=== PATIENT | female | born 1935 | race Caucasian/White ===

== ENCOUNTER 2017-09-20 18:52 | Inpatient (IN) | payer OTHER, MEDICAID ==
[~2017-09-20] VITALS: Ht 157.5 cm; Wt 62.6 kg
[~2017-09-20 18:52] MED LIST: AMO500 PO; ANTIVERT/2525 M1 PO; ARI10 PO; ARICEPT10 MG PO; ATENOLOL25 MG PO; ATENOLOL25 PO; COU1 PO; COU2.5 PO; COUMADIN2.5 MG PO; COUMADIN5 MG; COZ25 PO; COZ50 PO; DIT5 PO; DYA PO; ESCITALOPRAM10 M1; FAMOTIDINE20 MG PO; IMD60 PO; IMDUR ER30 M1 PO; ISOSORBIDE MONO30 M1 PO; LEVOXYL0.088 MG PO; LEXAPRO5 MG PO; LOSARTAN POTASS25 M1 PO; LYRICA50 M1 PO; LYRICA50 MG PO; METHOCARBAMOL500 MG PO; MIANS; NIT0.4 SL; OMEPRAZOLE DR20 M1 PO; OSCD PO; OXYBUTYNIN ER5 MG PO; OXYBUTYNIN PO; PANTOPRAZOLE40 MG PO; PEP20 PO; PEPCID AC20 M1 PO; PRE20 PO; PRO40 PO; SYN1 PO; T3 PO; TEN25 PO; THYROXIN PO; TRIAMTERENE/H37.5 MG PO; WARFARIN SODIUM3 M1 PO; ZYP5 PO; [UNRECOGNIZED DRUG - CODE] PO
[2017-09-20 20:06] LABS: BASOPHIL % 0.1 % (0-2); PLATELET COUNT 179 x10^3mcL (130-400); RED CELL DISTRIBUTION WIDTH 13.5 % (11.5-14.5)
[2017-09-20 20:20] LABS: ALBUMIN 3.7 g/dL (3.4-5.0); ALKALINE PHOSPHATASE 114 U/L (46-116); ALT/SGPT 16 U/L (14-59); AST/SGOT 20 U/L (15-37); BILIRUBIN TOTAL 0.6 mg/dL (0.20-1.00); CALCIUM 8.7 mg/dL (8.5-10.1); CARBON DIOXIDE 27.7 mmol/L (21-32); CHLORIDE SERUM 103 mmol/L (98-107); CREATININE SERUM 0.8 mg/dL (0.6-1.0); GLUCOSE SERUM 116 mg/dL (74-106); SODIUM SERUM 139 mmol/L (136-145)
[2017-09-20] MEDS ORDERED: LORAZEPAM0.5 MG (20:43)
[2017-09-20] MEDS ORDERED: ZOLOFT25 MG PO (20:44)
[2017-09-20] MEDS ORDERED: XARELTO10 M1 PO (20:44)
[2017-09-20 21:49] LABS: T3 TOTAL 0.81 ng/mL
[2017-09-20 21:50] LABS: FREE T4 1.39 ng/dL (0.76-1.46); FREE THYROXINE INDEX 3.6 ug/dL (1.4-4.5); T4(THYROXINE) 9.8 ug/dL (4.7-13.3)
[2017-09-20 21:59] LABS: MAGNESIUM 1.6 mg/dL (1.8-2.4); PHOSPHOROUS 2.4 mg/dL (2.5-4.9)
[2017-09-20 22:00] LABS: microscopic required? YES; urine erythrocyte 1+ (NEGATIVE)
[2017-09-20 22:00] LABS: CHOLESTEROL/HDL RATIO 2.7
[2017-09-20 22:06] VITALS: BP 111/51
[2017-09-20 22:10] VITALS: Ht 157.5 cm; Wt 62.6 kg
[2017-09-20 23:03] VITALS: BP 111/51
[2017-09-21 06:30] LABS: PLATELET COUNT 151 x10^3mcL (130-400); RED CELL DISTRIBUTION WIDTH 13.5 % (11.5-14.5)
[2017-09-21 06:47] LABS: CALCIUM 8.6 mg/dL (8.5-10.1); CHLORIDE SERUM 105 mmol/L (98-107); CREATININE SERUM 0.7 mg/dL (0.6-1.0); GLUCOSE SERUM 177 mg/dL (74-106); MAGNESIUM 1.6 mg/dL (1.8-2.4); POTASSIUM SERUM 3.9 mmol/L (3.5-5.1); SODIUM SERUM 139 mmol/L (136-145)
[2017-09-21 06:55] LABS: BASOPHIL % 0 % (0-2)
[2017-09-21 11:35] VITALS: BP 147/96
[2017-09-21 16:00] VITALS: BP 155/78
[2017-09-21 18:39] VITALS: BP 150/64
[2017-09-21 20:30] VITALS: BP 159/64
[2017-09-22 04:45] VITALS: BP 162/80
[2017-09-22 07:13] LABS: BASOPHIL % 0.1 % (0-2); PLATELET COUNT 154 x10^3mcL (130-400); RED CELL DISTRIBUTION WIDTH 13.7 % (11.5-14.5)
[2017-09-22 08:10] LABS: CALCIUM 8.3 mg/dL (8.5-10.1); CARBON DIOXIDE 24.7 mmol/L (21-32); CHLORIDE SERUM 105 mmol/L (98-107); CREATININE SERUM 0.7 mg/dL (0.6-1.0); GLUCOSE SERUM 93 mg/dL (74-106); POTASSIUM SERUM 3.4 mmol/L (3.5-5.1); SODIUM SERUM 141 mmol/L (136-145)
[2017-09-22 08:20] VITALS: BP 165/68
[2017-09-22 14:16] VITALS: BP 154/79
[2017-09-22 17:30] VITALS: BP 151/78
[2017-09-22 20:58] VITALS: BP 145/65
[2017-09-23 05:11] VITALS: BP 117/63
[2017-09-23 07:03] LABS: BASOPHIL % 0.1 % (0-2); PLATELET COUNT 146 x10^3mcL (130-400); RED CELL DISTRIBUTION WIDTH 13.7 % (11.5-14.5)
[2017-09-23 07:11] LABS: CALCIUM 8.1 mg/dL (8.5-10.1); CARBON DIOXIDE 25.1 mmol/L (21-32); CHLORIDE SERUM 107 mmol/L (98-107); CREATININE SERUM 0.6 mg/dL (0.6-1.0); GLUCOSE SERUM 104 mg/dL (74-106); MAGNESIUM 1.9 mg/dL (1.8-2.4); POTASSIUM SERUM 3.7 mmol/L (3.5-5.1); SODIUM SERUM 140 mmol/L (136-145)
[2017-09-23 09:00] VITALS: BP 152/76
[2017-09-23 14:30] VITALS: BP 138/69
[2017-09-23 19:18] VITALS: BP 129/62
[2017-09-23 21:32] VITALS: BP 146/69
[2017-09-24 05:05] VITALS: BP 155/68
[2017-09-24 06:44] LABS: BASOPHIL % 0.5 % (0-2); PLATELET COUNT 163 x10^3mcL (130-400); RED CELL DISTRIBUTION WIDTH 13.5 % (11.5-14.5)
[2017-09-24 06:54] LABS: CALCIUM 8.1 mg/dL (8.5-10.1); CHLORIDE SERUM 105 mmol/L (98-107); CREATININE SERUM 0.6 mg/dL (0.6-1.0); GLUCOSE SERUM 95 mg/dL (74-106); POTASSIUM SERUM 3.9 mmol/L (3.5-5.1); SODIUM SERUM 134 mmol/L (136-145)
[2017-09-24 08:00] VITALS: BP 131/68
[2017-09-24 10:09] VITALS: BP 138/55
[2017-09-24] MEDS ORDERED: LEVOFLOXACIN500 M1 PO (15:44)
[2017-09-24] MEDS ORDERED: CLINDAMYCIN HC300 MG PO (15:46)
[2017-09-24 15:54] VITALS: BP 138/55
[2017-09-24] MEDS ORDERED: LAC PO (15:55)
[2017-09-24] MEDS ORDERED: TYLENOL WITH CO1 TA2 PO (16:05)
== END 2017-09-24 17:43 | disposition home or self-care (01) | DRG 177 ==
LOC: ED 18:52 → DU 20:18
PROVIDERS: Emergency Medicine; Family Medicine
DX: J69.0 Pneumonitis due to inhalation of food and vomit (principal); J96.00 Acute respiratory failure, unspecified whether with hypoxia or hypercapnia; I50.43 Acute on chronic combined systolic (congestive) and diastolic (congestive) heart failure; N39.0 Urinary tract infection, site not specified; J09.X1 Influenza due to identified novel influenza A virus with pneumonia; K21.9 Gastro-esophageal reflux disease without esophagitis; R13.10 Dysphagia, unspecified; I11.0 Hypertensive heart disease with heart failure; I48.91 Unspecified atrial fibrillation; I10 Essential (primary) hypertension; R31.9 Hematuria, unspecified; G25.81 Restless legs syndrome; E78.5 Hyperlipidemia, unspecified; E05.90 Thyrotoxicosis, unspecified without thyrotoxic crisis or storm; Z68.22 Body mass index [BMI] 22.0-22.9, adult; Z90.5 Acquired absence of kidney; Z86.73 Personal history of transient ischemic attack (TIA), and cerebral infarction without residual deficits; Z86.718 Personal history of other venous thrombosis and embolism; Z86.711 Personal history of pulmonary embolism; Z79.01 Long term (current) use of anticoagulants; Z99.81 Dependence on supplemental oxygen
CPT/HCPCS: 36600; 83880; 84439; 87804; 92610-GN; 94150; 97110-GP; 97116-GP; 97530-GP; J1885; J1956; J2405; J2930; J3475; J3490; J7030; J7613; J7620; J7644; Q0092

== ENCOUNTER 2019-02-25 14:22 | Inpatient (IN) | payer OTHER ==
[~2019-02-25] VITALS: Ht 167.6 cm; Wt 66.0 kg
[~2019-02-25 14:22] MED LIST changes: +CLINDAMYCIN HC300 MG PO; +LAC PO; +LEVOFLOXACIN500 M1 PO; +LORAZEPAM0.5 MG; +TYLENOL WITH CO1 TA2 PO; +XARELTO10 M1 PO; +ZOLOFT25 MG PO
--- NOTE | 2019-02-25 14:41 | NUR ---
PT BIB [facility] WITH INITIAL COMPLAINT OF GENERALIZED WEAKNESS. UPON ARRIVAL PT AWAKE ALERT HOWEVER CONFUSED TO TIME PLACE AND SITUATION. PT FOLLOWS COMMANDS. EQUAL BUTTONER AND PUSHES NO FACIAL ASSYMETRY OR DROOP NOTED. PT REPORTEDLY WAS AT HOME HOME HEALTH NURSE CALLED 911 DUE TO PT "NOT ACTING RIGHT". PT LIVES WITH WHO IS [place] SPEAKING BUT PER MEDICS DID NOT APPEAR TO BE ABLE TO TRAVEL ON HIS OWN. HOME HEALTH NURSE DID NOT KNOW PTS BASELINE IT WAS HER FIRST TIME VISITING PT. PT GOWNED PLACED ON FULL CM. EKG DONE BY CLARITA EMT. PT IN POSITION OF COMFORT NO DISTRESS. WILL MONITOR.
--- NOTE | 2019-02-25 15:44 | NUR ---
PT ASSISTED TO BEDSIDE COMMODE WITH NO PROBLEM. PT INST ON CLEAN CATH URINE. AT BEDSIDE ASSISTING. WILL MONITOR.
[2019-02-25 15:56] LABS: UA SPECIFIC GRAVITY 1.025 (1.005-1.035); microscopic required? YES; urine erythrocyte NEGATIVE (NEGATIVE)
--- NOTE | 2019-02-25 16:14 | NUR ---
MSE COMPLETED BY DR BARRAGAN
--- NOTE | 2019-02-25 16:14 | NUR ---
PTS AT BEDSIDE PT IN NO DISTRESS ASSISTED TO POSITION OF COMFORT. WARM BLANKET PROVIDED PER PTS REQUEST. PT AFEBRILE AT THIS TIME. CALL LIGHT IN REACH. SIDE RAILS UP X 2 FOR PTS SAFETY. WILL MONITOR.
--- NOTE | 2019-02-25 16:25 | NUR ---
PORTABLE CXR AT BEDSIDE AT THIS TIME
[2019-02-25 16:58] LABS: CALCIUM 8.3 mg/dL (8.5-10.1); CARBON DIOXIDE 32.2 mmol/L (21-32); CHLORIDE SERUM 108 mmol/L (98-107); GLUCOSE SERUM 117 mg/dL (74-106); POTASSIUM SERUM 4.4 mmol/L (3.5-5.1); SODIUM SERUM 145 mmol/L (136-145)
[2019-02-25 17:08] LABS: ALKALINE PHOSPHATASE 382 U/L (46-116); ALT/SGPT 144 U/L (14-59); AST/SGOT 88 U/L (15-37); BILIRUBIN TOTAL 1.4 mg/dL (0.20-1.00); C REACTIVE PROTEIN 6.7 mg/dL (<=0.9)
[2019-02-25 17:11] LABS: TOTAL PROTEIN, SERUM 5.9 g/dL (6.4-8.2)
[2019-02-25 17:13] LABS: FREE T4 1.11 ng/dL (0.76-1.46); FREE THYROXINE INDEX 2.7 ug/dL (1.4-4.5); T4(THYROXINE) 7.6 ug/dL (4.7-13.3)
[2019-02-25 17:16] LABS: BASOPHIL % 0.7 % (0-2); PLATELET COUNT 187 x10^3mcL (130-400); RED CELL DISTRIBUTION WIDTH 16.5 % (11.5-14.5)
--- NOTE | 2019-02-25 17:45 | NUR ---
RT AT BEDSIDE PER DR BARRAGAN PLACE PT ON BI-PAP
[2019-02-25 17:55] LABS: T3 TOTAL 0.78 ng/mL
[2019-02-25 17:57] LABS: CK-MB 1.2 ng/mL (0-3.6)
--- NOTE | 2019-02-25 17:58 | NUR ---
PER DR BARRAGAN IVF BOLUS STOPPED.
--- NOTE | 2019-02-25 18:00 | NUR ---
PT TO XRAY VIA NERY
--- NOTE | 2019-02-25 18:08 | NUR ---
PT BACK FROM [facility] VIA [facility] WITH NO INCIDENT
[2019-02-25 18:20] LABS: ERYTHROCYTE SED RATE 25 mm/hr (0-30)
[2019-02-25 18:31] VITALS: BP 128/80
--- NOTE | 2019-02-25 18:46 | NUR ---
PT LYING IN BED COMFORTABLY NO DISTRESS NO FURTHER ORDERS AT THIS TIME WILL MONITOR.
--- NOTE | 2019-02-25 19:12 | NUR ---
REPORT GIVEN BY FREDRICK AMAYA. PT FAMILY REQUESTING TO SPEAK TO DR BARRAGAN ABOUT PLAN OF CARE. DR BARRAGAN MADE AWARE.
--- NOTE | 2019-02-25 19:16 | NUR ---
PT MEDICATED PER MD ORDERS SEE EMAR.
--- NOTE | 2019-02-25 19:17 | NUR ---
REPORT GIVEN TO STEPHANIE AMAYA. RESUMING CARE OF PT AT THIS TIME
--- NOTE | 2019-02-25 19:22 | NUR ---
PT CALLED NURSING STATION C/O "GETTING TOO MUCH AIR". DR BARRAGAN AT BEDSIDE SPEAKING WITH SON ABOUT PLAN OF CARE.
--- NOTE | 2019-02-25 19:43 | NUR ---
PT REQUESTING WATER, OKAY TO PROVIDE PT WITH SMALL SIPS OF WATER AND ICE CHIPS PER DR BARRAGAN. EDUCATED FAMILY ON IMPORTANCE OF NOT GIVING PATIENTS MORE WATER OR LIQUIDS AT THIS TIME. PT ABLE TO ANSWER QUESTIONS APPROPRIATELY AT THIS TIME. BI-PAP IN PLACE. FAMILY AT BEDSIDE. WILL CONTINUE TOP MONITOR.
[2019-02-25 20:44] LABS: MAGNESIUM 2.4 mg/dL (1.8-2.4); PHOSPHOROUS 3.9 mg/dL (2.5-4.9)
[2019-02-25 20:46] LABS: CHOLESTEROL/HDL RATIO 5.7
--- NOTE | 2019-02-25 21:02 | NUR ---
REPORT CALLED TO BRYSON AMAYA.
--- NOTE | 2019-02-25 21:06 | NUR ---
RT CALLED TO ASSIST IN TRANSPORTATION OF PT TO TELE.
--- NOTE | 2019-02-25 21:16 | NUR ---
PT TRANSFERED TO TELE BED 236B VIA [facility] ACCOMPANIED BY GRACIELA RN, VIC EMT, AND RT. PT IN NAD. BREATHING EVEN AND UNLABORED. PT AWAKE AND ALERT. FAMILY VERBALIZED UNDERSTANDING OF DC INSTRUCTIONS AND MEDICATION REVIEW.
[2019-02-25 21:55] VITALS: BP 156/81
--- NOTE | 2019-02-25 22:00 | NUR ---
RECEIVED PT FROM ED VIA ARYA. ORIENTED PT TO ROOM AND SURROUNDINGS. IV NOTED TO PATENT AND INTACT. TELE 6 PLACED ON PT READING AFIB. INSTRUCTED PT ON THE USE OF CALL LIGHT FOR ASSISTANCE. ENDORSED PT TO PRIMARY NURSE BRYSON
--- NOTE | 2019-02-25 22:10 | NUR ---
NEW ADM. KEPT COMFORTABLE IN BED. ALERT AND ORIENTED, WITH SLURRED SPEECH. ABLE TO VERBALIZE NEEDS. DENIES HEADACHE/DIZZINESS. RESP. EVEN AND UNLABORED. LUNG SOUNDS DIM. ON 02 AT 2L/MIN VIA NC, SAT. 96%. DENIES SOB, NO ACUTE DISTRESS NOTED. AFEBRILE AND VITAL SIGNS STABLE AFIB ON THE MONITOR, DENIES CHEST PAIN OR ANY DISCOMFORT AT THIS TIME. ABD. SOFT, NON DISTENDED, BS ACTIVE, NO N/V NOTED.STARTED ON IVF, NS AT 10ML/HR, INFUSING VIA LH, SITE CLEAR. SKIN WARM AND DRY TO TOUCH, INTACT ,DISCOLORATION TO BLE, NO EDEMA NOTED. IBARRA CATH INTACT AND DRAINING YELLOW COLOR URINE. CALL LIGHT WITHIN REACH. WILL CONTINUE TO MONITOR.
--- NOTE | 2019-02-26 01:56 | NUR ---
EYES CLOSED, APPEARS ASLEEP, EASILY AROUSABLE. RESP. EVEN AND UNLABORED. [address], LÓPEZ. WELL. NO ACUTE DISTRESS NOTED. WILL CONTINUE TO MONITOR.
[2019-02-26 04:46] VITALS: BP 136/76
--- NOTE | 2019-02-26 06:10 | NUR ---
SLEPT MOST OF THE NIGHT. NO COMPLAINTS NOTED. DENIES CP OR ANY DISCOMFORT. AFEBRILE AND VITAL SIGNS STABLE. IVF INTACT AND INFUSING WELL, SITE CLEAR. DUE MEDS GIVEN ORDERED, LÓPEZ. WELL. IBARRA CATH INTACT AND PATENT. KEPT COMFORTABLE. CALL LIGHT WITHIN REACH. WILL CONTINUE TO MONITOR.
--- NOTE | 2019-02-26 07:05 | NUR ---
RECEIVED REPORT FROM NUR[employer] TEACHER NURSE. PATIENT RESTING COMFORTABLY IN BED. NO APPARENT DISTRESS OR DISCOMFORT NOTED. BREATHING EVEN AND UNLABORED. 2L NC IN PLACE AND TOLERATING WELL. PATIENT DENIES CHEST PAIN AT THIS TIME. IV PATENT AND INTACT. ALL QUESTIONS AND CONCERNS ADDRESSED. ALL NEEDS ATTENDED TO. WILL CONTINUE TO MONITOR
[2019-02-26 09:25] VITALS: BP 140/66
--- NOTE | 2019-02-26 10:38 | NUR ---
MORNING MEDICATIONS ADMINISTERED. PATIENT TOLERATED MEDICATION WELL. NO ADVERSE EFFECTS NOTED. NO APPARENT DISTRESS OR DISCOMFORT. ALL NEEDS ATTENDED TO. WILL CONTINUE TO MONITOR
--- NOTE | 2019-02-26 13:06 | NUR ---
PATIENT SITTING UP IN BED EATING LUNCH AT THIS TIME. PATIENT TOLERATING DIET WELL. NO APPARENT DISTRESS NOTED. ALL NEEDS ATTENDED TO. WILL CONTINUE TO MONITOR
[2019-02-26 15:22] VITALS: Ht 167.6 cm; Wt 66.0 kg
--- NOTE | 2019-02-26 17:45 | NUR ---
PATIENT SITTING UP IN BED EATING DINNER AT THIS TIME. PATIENT TOLERATING DIET WELL. NO APPARENT DISTRESS OR DISCOMFORT NOTED. ALL NEEDS ATTENDED TO. WILL CONTINUE TO MONITOR
[2019-02-26 18:29] VITALS: BP 145/71
--- NOTE | 2019-02-26 18:43 | NUR ---
PATIENT RESTING COMFORTABLY IN BED AT THIS TIME. NO APPARENT DISTRESS OR DISCOMFORT NOTED. 2L NC IN PLACE AND PATIENT TOLERATING WELL. IV PATENT AND INTACT. ALL QUESTIONS AND CONCERNS ADDRESSED. SAFETY PRECAUTIONS MAINTAINED. ALL NEEDS ATTENDED TO. WILL ENDORSE ALL CARE TO PUMP TESTER NURSE
--- NOTE | 2019-02-26 19:32 | NUR ---
SHIFT REASSESSMENT DONE.PATIENT ALERT AND ORIENTED,MAINLY ROMANIAN,NEEDS ANTICIPATED.BREATHING EASY,O2 AT 2 LITERS.BSC,GEN WEAKNESS.FALL PRECAUTION.NS AT 10 CC/ HOUR.TELE 6 AFIB.NO CHEST PAIN.DISCOLORATIONBLE NOTED.CALL LIGHT IN REACH.MRSA NARES HX.MAINTAINED CONTACT ISOLATION.
--- NOTE | 2019-02-26 21:05 | NUR ---
PM MEDS GIVEN,SWALLOWS WELL.
[2019-02-26 21:34] VITALS: BP 106/73
--- NOTE | 2019-02-27 00:59 | NUR ---
CHECKED AT INTERVALS FOR NEEDS AND SAFETY.
--- NOTE | 2019-02-27 04:04 | NUR ---
EXTENSION TUBING TO IV SITE FOR EASIER HANDLING BOTH NURSES AND PATIENT.
--- NOTE | 2019-02-27 04:54 | NUR ---
PATIENT UP AND ABOUT BSC,VOIDING QS.IV WITH EXTENSION TUBING EASY TO HANDLE.NS AT 10 CC/ HOUR.
[2019-02-27 05:21] VITALS: BP 143/74
--- NOTE | 2019-02-27 05:41 | NUR ---
TELE SHOEING IN AND OUT OF AFIB AND FLUTTER.NO SYMPTOMS.VITAL SIGNS JUST TAKEN.
--- NOTE | 2019-02-27 05:56 | NUR ---
DR GUPTA MADE AWARE.IN AND OUT OF AFIB/FLUTTER.NO ORDER.
[2019-02-27 07:13] LABS: BASOPHIL % 0.7 % (0-2); PLATELET COUNT 224 x10^3mcL (130-400)
[2019-02-27 07:21] LABS: RED CELL DISTRIBUTION WIDTH 15.6 % (11.5-14.5)
--- NOTE | 2019-02-27 07:30 | NUR ---
PATIENT SLEEPING IN BED, AROUSABLE. PATIENT IS A/OX4, DENIES LOWE, DIZZINESS. TELE MONITOR IN PLACE. PATIENT DENIES CHEST PAIN. NO EDEMA NOTED. PATIENT DENIES SOB, ON ROOM AIR. PATIENT IS AMBULATORY WITH ASSISTANCE. NS IV INFUSING TO LEFT HAND AT 10ML/HR, IV SITE, CDI & PATENT, NO S/S OF INFILTRATION. CALL LIGHT WITHIN REACH, BED IN LOW POSITION, WILL CONTINUE TO MONITOR FOR CHANGES.
[2019-02-27 07:36] LABS: CALCIUM 9.2 mg/dL (8.5-10.1); CARBON DIOXIDE 28.5 mmol/L (21-32); CHLORIDE SERUM 105 mmol/L (98-107); CREATININE SERUM 0.8 mg/dL (0.6-1.0); GLUCOSE SERUM 111 mg/dL (74-106); POTASSIUM SERUM 3.5 mmol/L (3.5-5.1); SODIUM SERUM 146 mmol/L (136-145)
--- NOTE | 2019-02-27 12:07 | NUR ---
PATIENT C/O GENERALIZED PAIN 04/26, MEDICATED PATIENT WITH NORCO PER PROTOCOL (SE EMAR). REPOSITIONED PATIENT FOR COMFORT, EDUCATED PATIENT ON PAIN MANAGEMENT. CALL LIGHT WITHIN REACH, BED IN LOW POSITION. WILL CONTINUE TO MONITOR FOR CHANGES.
[2019-02-27 12:16] VITALS: BP 130/82
--- NOTE | 2019-02-27 13:10 | NUR ---
PATIENT AMBULATED TO THE BATHROOM WITH ASSISTANCE, SLOW GAIT NOTICED. WILL CONTINUE TO MONITOR PATIENT.
--- NOTE | 2019-02-27 14:06 | NUR ---
PATIENT WAS DISCHARGE HOME WITH . PATIENT WAS TAKEN DOWN VIA WHEELCHAIR. PATIENT DENIES PAIN. PROVIDED PATIENT WITH COPY OF DISCHARGE INSTRUCTIONS. PATIENT AND FAMILY UNDERSTAND AND AGREE WITH PLAN OF CARE AND INSTRUCTIONS, INCLUDING FOLOW UP WITH PCP AND MEDICATIONS. PATIENT TELE MONITOR AND ARMBANDS REMOVED. IV REMOVED, CATH INTACT. PATIENT TOOK HOME ALL PERSONAL BELONGING. PATIENT IS STABLE UPON DISCHARGE.
[2019-02-27] MEDS ORDERED: KEFLEX500 M1 PO (14:49)
[2019-02-27] MEDS ORDERED: LAC PO (14:50)
[2019-02-27 15:48] VITALS: BP 138/88
== END 2019-02-27 16:05 | disposition home or self-care (01) | DRG 640 ==
LOC: ED 14:22 → DU 20:36
PROVIDERS: Specialist; ADMIT Internal Medicine
DX: E86.0 Dehydration (principal); G93.41 Metabolic encephalopathy; N17.0 Acute kidney failure with tubular necrosis; N39.0 Urinary tract infection, site not specified; E44.1 Mild protein-calorie malnutrition; I10 Essential (primary) hypertension; I48.91 Unspecified atrial fibrillation; E03.9 Hypothyroidism, unspecified; R80.9 Proteinuria, unspecified; F03.90 Unspecified dementia, unspecified severity, without behavioral disturbance, psychotic disturbance, mood disturbance, and anxiety; R74.0 Nonspecific elevation of levels of transaminase and lactic acid dehydrogenase [LDH]; Z99.81 Dependence on supplemental oxygen; Z68.24 Body mass index [BMI] 24.0-24.9, adult; Z86.73 Personal history of transient ischemic attack (TIA), and cerebral infarction without residual deficits
CPT/HCPCS: 36600; 83880; 84439; 97116-GP; 97530-GP; G0378; J0696; J1940; J7030; Q0092

== ENCOUNTER 2019-05-04 18:27 | Emergency (ER) | payer OTHER ==
[~2019-05-04] VITALS: Ht 157.5 cm; Wt 63.5 kg
[2019-05-04 18:27] VITALS: Ht 157.5 cm; Wt 63.5 kg
[~2019-05-04 18:27] MED LIST changes: +KEFLEX500 M1 PO
[2019-05-04 19:31] LABS: BASOPHIL % 0.4 % (0-2); PLATELET COUNT 193 x10^3mcL (130-400)
[2019-05-04 19:32] LABS: RED CELL DISTRIBUTION WIDTH 15.4 % (11.5-14.5)
[2019-05-04 19:42] LABS: CARBON DIOXIDE 25.1 mmol/L (21-32); CHLORIDE SERUM 106 mmol/L (98-107); CREATININE SERUM 0.7 mg/dL (0.6-1.0); GLUCOSE SERUM 136 mg/dL (74-106); POTASSIUM SERUM 4.7 mmol/L (3.5-5.1); SODIUM SERUM 139 mmol/L (136-145)
[2019-05-04 19:47] LABS: ALBUMIN 3.5 g/dL (3.4-5.0); ALKALINE PHOSPHATASE 330 U/L (46-116); ALT/SGPT 111 U/L (14-59); AST/SGOT 192 U/L (15-37); BILIRUBIN TOTAL 3.99 mg/dL (0.20-1.00); HDL CHOLESTEROL 51 mg/dL (40-60); LIPASE 66 IU/L (73-393); MAGNESIUM 2.1 mg/dL (1.8-2.4); PHOSPHOROUS 2.6 mg/dL (2.5-4.9); TOTAL PROTEIN, SERUM 6.9 g/dL (6.4-8.2)
[2019-05-04 19:49] LABS: CHOLESTEROL 130 mg/dL (<200)
[2019-05-04 21:53] VITALS: BP 135/62
== END 2019-05-04 21:53 | disposition home or self-care (01) ==
LOC: ED 18:27
PROVIDERS: Emergency Medicine
DX: R53.1 Weakness (principal); M48.55XA Collapsed vertebra, not elsewhere classified, thoracolumbar region, initial encounter for fracture; N85.8 Other specified noninflammatory disorders of uterus; I10 Essential (primary) hypertension; J45.909 Unspecified asthma, uncomplicated; Z86.73 Personal history of transient ischemic attack (TIA), and cerebral infarction without residual deficits
CPT/HCPCS: 36415; 82962; J7030; Q0092

== ENCOUNTER 2019-08-02 10:53 | Emergency (ER) | payer OTHER ==
[~2019-08-02] VITALS: Ht 152.4 cm; Wt 61.7 kg
[2019-08-02 11:03] VITALS: Ht 152.4 cm; Wt 61.7 kg
[2019-08-02 11:56] LABS: microscopic required? YES; urine erythrocyte TRACE (NEGATIVE)
[2019-08-02 12:26] LABS: BASOPHIL % 0.2 % (0-2); PLATELET COUNT 190 x10^3mcL (130-400)
[2019-08-02 12:34] LABS: RED CELL DISTRIBUTION WIDTH 16.3 % (11.5-14.5)
[2019-08-02 12:37] LABS: CALCIUM 8.1 mg/dL (8.5-10.1); CARBON DIOXIDE 27.2 mmol/L (21-32); CHLORIDE SERUM 103 mmol/L (98-107); GLUCOSE SERUM 94 mg/dL (74-106); POTASSIUM SERUM 4.6 mmol/L (3.5-5.1); SODIUM SERUM 137 mmol/L (136-145)
[2019-08-02 12:44] LABS: ALKALINE PHOSPHATASE 79 U/L (46-116); ALT/SGPT 14 U/L (14-59); AST/SGOT 14 U/L (15-37); BILIRUBIN TOTAL 0.64 mg/dL (0.20-1.00); TOTAL PROTEIN, SERUM 6.3 g/dL (6.4-8.2)
[2019-08-02] MEDS ORDERED: BEN20 PO (14:09)
[2019-08-02] MEDS ORDERED: CEFUROXIME AXE500 MG PO (14:09)
[2019-08-02] MEDS ORDERED: DITROPAN XL10 MG PO (14:10)
[2019-08-02] MEDS ORDERED: CLARITIN10 MG PO (14:11)
[2019-08-02] MEDS ORDERED: ARAVA20 MG PO (14:11)
[2019-08-02 22:12] VITALS: BP 145/65
== END 2019-08-02 21:36 | disposition short-term general hospital (02) ==
LOC: ED 10:53
PROVIDERS: Emergency Medicine
DX: G93.40 Encephalopathy, unspecified (principal); N30.90 Cystitis, unspecified without hematuria; E86.1 Hypovolemia; I10 Essential (primary) hypertension
CPT/HCPCS: J0696; J7030; J7060; Q0092